=== PATIENT | male | born 2000 | race African-American/Black ===

== ENCOUNTER 2020-04-26 16:42 | Emergency (ER) | payer OTHER ==
[~2020-04-26] VITALS: Ht 180.3 cm; Wt 81.7 kg
[~2020-04-26 16:42] MED LIST: HYDROCODONE-AC120 ML PO; NOHOMEMEDICATIONS; NORCO 5-325 TA1 EACH PO
[2020-04-26 18:49] VITALS: BP 122/78
== END 2020-04-26 18:49 | disposition home or self-care (01) ==
LOC: ER 16:42
DX: S02.2XXA Fracture of nasal bones, initial encounter for closed fracture (principal); S80.02XA Contusion of left knee, initial encounter; S40.812A Abrasion of left upper arm, initial encounter; M25.561 Pain in right knee; M25.522 Pain in left elbow; M54.2 Cervicalgia; V49.9XXA Car occupant (driver) (passenger) injured in unspecified traffic accident, initial encounter; Y93.89 Activity, other specified; Y92.89 Other specified places as the place of occurrence of the external cause; Y99.8 Other external cause status